=== PATIENT | male | born 1965 | race Caucasian/White ===

== ENCOUNTER 2020-05-24 18:07 | Emergency (ER) | payer OTHER, BC ==
[2020-05-24] MEDS ORDERED: Voltaren Gel 1 % TOP (21:03)
[2020-05-24] MEDS ORDERED: NORFLEX 100 MG100 MG PO (21:03)
== END 2020-05-24 21:30 | disposition home or self-care (01) ==
LOC: ER1 18:07
DX: S16.1XXA Strain of muscle, fascia and tendon at neck level, initial encounter (principal); S76.012A Strain of muscle, fascia and tendon of left hip, initial encounter; S76.011A Strain of muscle, fascia and tendon of right hip, initial encounter; I10 Essential (primary) hypertension; F17.220 Nicotine dependence, chewing tobacco, uncomplicated; V49.50XA Passenger injured in collision with unspecified motor vehicles in traffic accident, initial encounter; Y92.410 Unspecified street and highway as the place of occurrence of the external cause
CPT/HCPCS: 99283

== ENCOUNTER → 2021-03-03 | Outpatient (CLI) | payer BC ==
[~2021-03-03] MED LIST: NORFLEX 100 MG100 MG PO; Voltaren Gel 1 % TOP
== END ==
LOC: RAD 07:12
DX: D64.9 Anemia, unspecified (principal)
CPT/HCPCS: 74250